=== PATIENT | male | born 1945 | race Caucasian/White ===

== ENCOUNTER 2017-01-25 06:53 | Emergency (ER) | payer MEDICARE ==
[2017-01-25 07:29] VITALS: TEMP 97.5
--- NOTE | 2017-01-25 08:18 | ED PDOC ---
HPI: Headache Time Seen by Provider: 01/25/17 07:20 Chief Complaint (Nursing): Headache Chief Complaint (Provider): Headache History Per: Patient History/Exam Limitations: no limitations Onset/Duration Of Symptoms: Days (x2 days, since yesterday morning 01/24/2017.) Current Symptoms Are (Timing): Still Present Additional Complaint(s): 71 y/o male with a past medical history of diabetes, hypertension, and neuropathy who presents to the emergency department with a complaint of a headache (not the worst headache experienced in life) since yesterday morning, 01/24/2017. Associated with nausea, 3 episodes of vomiting (had resolved since) and 3 episodes of diarrhea (had resolved since). Reports taking Tylenol at 3am yesterday and Percocet today without the relief of symptoms. Denies fever. PMD: Dr. Nam Sawyer MD Past Medical History Reviewed: Historical Data, Nursing Documentation, Vital Signs Vital Signs: Last Vital Signs Temp 97.5 F L 01/25/17 07:20 Pulse 82 01/25/17 07:20 Resp 19 01/25/17 07:20 BP 174/79 H 01/25/17 07:20 Pulse Ox 98 01/25/17 07:20 - Medical History PMH: Diabetes, HTN, Migraine Denies: Arthritis, Asthma, Atrial Fibrillation, CHF, COPD, Hypercholesterolemia, Chronic Kidney Disease, Seizures Other PMH: Neuropathy - Surgical History Surgical History: Denies: CABG, Pacemaker - Family History Family History: Denies: CAD - Social History Current smoker - smoking cessation education provided: No Ex-Smoker (has not smoked in the last 12 months): Yes Alcohol: None Drugs: Denies - Home Medications Home Medications: Ambulatory Orders Medication Instructions Recorded Amlodipine Besylate [Norvasc] 5 mg PO DAILY 07/01/15 Ergocalciferol (Vitamin D2) 50,000 unit PO QWK 07/01/15 [Vitamin D] GlipiZIDE [Glucotrol] 10 mg PO DAILY 07/01/15 Hydrochlorothiazide [HCTZ] 12.5 mg PO DAILY 07/01/15 Ibuprofen [Ibuprofen] 600 mg PO HS 07/01/15 Insulin Glargine,Hum.rec.anlog 50 unit SC Q12 07/01/15 [Lantus] Lisinopril [Lisinopril] 10 mg PO DAILY 07/01/15 Losartan [Cozaar] 50 mg PO DAILY 07/01/15 Ondansetron [Zofran Tab] 4 mg PO DAILY PRN 07/01/15 Oxycodone HCl/Acetaminophen 1 tab PO BID 07/01/15 [Percocet 325 mg-5 mg] Pregabalin [Lyrica] 300 mg PO HS 07/01/15 Repaglinide [Prandin] 2 mg PO TID 07/01/15 Sildenafil [Revatio] 20 mg PO DAILY PRN 07/01/15 Sitagliptin Phosphate [Januvia] 100 mg PO DAILY 07/01/15 Zolpidem Tartrate [Ambien] 10 mg PO HS 07/01/15 Ibuprofen [Motrin] 600 mg PO TID PRN #30 tab 03/03/16 Metoclopramide [Reglan] 10 mg PO Q8 #12 tab 03/03/16 - Allergies Allergies/Adverse Reactions: Allergies Allergy/AdvReac Type Severity Reaction Status Date / Time ampicillin Allergy COUGH Verified 03/03/16 10:43 sulbactam Allergy COUGH Verified 03/03/16 10:43 Review of Systems ROS Statement: Except As Marked, All Systems Reviewed And Found Negative Constitutional: Negative for: Fever Gastrointestinal: Positive for: Nausea, Vomiting (3 episodes but had resolved since), Diarrhea (3 episodes but had resolved since. ) Neurological: Positive for: Headache (Not a thunderclap headache) Physical Exam - Reviewed Nursing Documentation Reviewed: Yes Vital Signs Reviewed: Yes - Physical Exam Appears: Positive for: Non-toxic, No Acute Distress Head Exam: Positive for: ATRAUMATIC, NORMAL INSPECTION, NORMOCEPHALIC Skin: Positive for: Normal Color, Warm, Dry Neck: Positive for: Normal, Supple Cardiovascular/Chest: Positive for: Regular Rate, Rhythm. Negative for: Murmur Respiratory: Positive for: Normal Breath Sounds. Negative for: Accessory Muscle Use, Respiratory Distress Gastrointestinal/Abdominal: Positive for: Normal Exam, Soft. 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 Negative for: Pedal Edema Neurologic/Psych: Positive for: Alert, Oriented - Laboratory Results Result Diagrams: 01/25/17 08:47 01/25/17 08:47 - ECG O2 Sat by Pulse Oximetry: 98 (RA) Pulse Ox Interpretation: Normal Medical Decision Making Medical Decision Making: Time: 07:20 Initial impression: Headache Initial plan: --Head w/o contrast CT --COMP Metabolic Panel --CBC w/ differential --Reevaluation Time: 08:47 --COMP Metabolic Panel Time: 08:53 --Head CT FINDINGS: HEMORRHAGE: No intracranial hemorrhage. BRAIN: No mass effect or edema. No atrophy or chronic microvascular ischemic changes. VENTRICLES: Unremarkable. No hydrocephalus. CALVARIUM: Unremarkable. PARANASAL SINUSES: Unremarkable as visualized. No significant inflammatory changes. MASTOID AIR CELLS: Unremarkable as visualized. No inflammatory changes. OTHER FINDINGS: None. IMPRESSION: Normal CT of the Head. Time: 09:49 --Reglan 10 mb IVP Time: 10:10 --Normal labs with slightly elevated sugar. --Reassessment. Time: 10:35 --Upon reevaluation, patient does not feel better and stated that reglan did not help. --Toradol 30 mg IV Time: 11:16 --Patient left before treatment was complete. pt unable to be found (IV taken before left) Scribe Attestation: Documented by Candy Awad, acting as a scribe for Jorge Luis Whelan MD. Provider Scribe Attestation: All medical record entries made by the Scribe were at my direction and personally dictated by me. I have reviewed the chart and agree that the record accurately reflects my personal performance of the history, physical exam, medical decision making, and the department course for this patient. I have also personally directed, reviewed, and agree with the discharge instructions and disposition. Disposition - Clinical Impression Clinical Impression: Acute headache - Patient ED Disposition Is Patient to be Admitted: No - Disposition Disposition: Left W/O Treatment Disposition Time: 11:00 Condition: STABLE Additional Instructions: follow up with your primary doctor in 1-2 days return to the ED with any worsening or concerning symptoms. Instructions: Acute Headache (ED)
[2017-01-25 08:54] LABS: BASO # 0.1 K/uL (0.0-0.2); BASO % 0.8 % (0.0-2.0); EOS # 0.2 K/uL (0.0-0.7); EOS % 2.2 % (0.0-4.0); HEMATOCRIT 40.1 % (35.0-51.0); LYMPH # 2.3 K/uL (1.0-4.3); LYMPH % 29.3 % (20.0-40.0); MEAN CELL VOLUME 81.1 fl (80.0-94.0); MEAN CORPUSCULAR HEMOGLOBIN 26.9 pg (27.0-31.0); MEAN CORPUSCULAR HGB CONC 33.2 g/dL (33.0-37.0); MEAN PLATELET VOLUME 8.5 fl (7.2-11.7); MONO # 0.5 K/uL (0.0-0.8); MONO % 5.7 % (0.0-10.0); NRBC % 0.1 % (0.0-0.0); RED CELL DISTRIBUTION WIDTH 13.1 % (11.5-14.5)
--- NOTE | 2017-01-25 08:54 | CT ---
PROCEDURE: CT HEAD WITHOUT CONTRAST. HISTORY: headache COMPARISON: None available. TECHNIQUE: Axial computed tomography images were obtained through the head/brain without intravenous contrast. Radiation dose: Total exam DLP = 910.97 mGy-cm. This CT exam was performed using one or more of the following dose reduction techniques: Automated exposure control, adjustment of the mA and/or kV according to patient size, and/or use of iterative reconstruction technique. FINDINGS: HEMORRHAGE: No intracranial hemorrhage. BRAIN: No mass effect or edema. No atrophy or chronic microvascular ischemic changes. VENTRICLES: Unremarkable. No hydrocephalus. CALVARIUM: Unremarkable. PARANASAL SINUSES: Unremarkable as visualized. No significant inflammatory changes. MASTOID AIR CELLS: Unremarkable as visualized. No inflammatory changes. OTHER FINDINGS: None. IMPRESSION: Normal CT of the Head.
[2017-01-25 09:07] LABS: ALB/GLOB RATIO 1.4 (1.0-2.1); ALKALINE PHOSPHATASE 96 U/L (38-126); ALT/SGPT 41 U/L (21-72); AST/SGOT 36 U/L (17-59); BILIRUBIN,TOTAL 0.8 mg/dl (0.2-1.3); BLOOD UREA NITROGEN 25 mg/dl (9-20); CALCIUM 9.1 mg/dL (8.4-10.2); CARBON DIOXIDE 23 mmol/L (22-30); CHLORIDE 104 mmol/L (98-107); GFR AFRICAN-AMERICAN > 60; GLUCOSE,RANDOM 206 mg/dL (75-110); SODIUM 138 mmol/l (132-148); TOTAL PROTEIN 7.5 G/DL (6.3-8.2)
[2017-01-25 09:13] LABS: POTASSIUM 4.9 MMOL/L (3.6-5.0)
[2017-01-25 09:42] VITALS: BP 176/76; PULSE 65; RESP 17
[2017-01-25 10:13] VITALS: O2SAT 98
== END 2017-01-25 11:00 | disposition left against medical advice (07) ==
LOC: H.ER 06:53
DX: R51 Headache (principal); E11.40 Type 2 diabetes mellitus with diabetic neuropathy, unspecified; I10 Essential (primary) hypertension; Z79.4 Long term (current) use of insulin; Z87.891 Personal history of nicotine dependence
CPT/HCPCS: 70450; 80053; 82948; 85025; 96374; 96375; 99285; J1885; J2765